=== PATIENT | female | born 1960 | race African-American/Black ===

== ENCOUNTER 2019-04-19 07:27 | Emergency (ER) | payer BC ==
--- NOTE | 2019-04-19 07:46 | PDOC ---
History of Present Illness <Ho Mckeon - Last Filed: 04/19/19 08:16> - History of Present Illness Initial Comments: 04/19/19 07:56 58 year old woman with a history of paroxysmal a fib, palpitations, HLD and diverticulitis who presents with 12 minutes of chest pain/pressure and shortness of breath that occurred after leaving the gym at 7:50am. The patient reports she was not doing more activity than normal at the gym and was on the treadmill, lifting weights and doing lunges. The patient called 911 for the chest pain but as she spoke to them she noted that the pain resolved, so she decided to drive herself to the ED. She had a recent travel to [place] on 4 days ago with return flight yesterday afternoon. Flight duration 3 hours. The patient a stress echo in January that was negative, and had a Holter monitor last week for her palpitations without acute findings. At bedside she denies any current symptoms. ROS GENERAL/CONSTITUTIONAL: No fever or chills. No weakness. CARDIOVASCULAR: + chest pain or shortness of breath RESPIRATORY: No cough, wheezing, or hemoptysis. GASTROINTESTINAL: No nausea, vomiting, diarrhea or constipation. GENITOURINARY: No dysuria, frequency, or change in urination. MUSCULOSKELETAL: No joint or muscle swelling or pain. No neck or back pain. SKIN: No rash NEUROLOGIC: No headache, vertigo, loss of consciousness, or change in strength/ sensation. PE GENERAL: Awake, alert, and fully oriented, in no acute distress HEAD: No signs of trauma, normocephalic, atraumatic EYES: EOMI, sclera anicteric, conjunctiva clear ENT: oropharynx clear without exudates. Moist mucosa NECK: Normal ROM, supple LUNGS: No distress, speaks full sentences, slightly decreased breath sounds on R lung soliman HEART: Regular rate and rhythm, normal S1 and S2, no murmurs, rubs or gallops, peripheral pulses normal and equal bilaterally. ABDOMEN: Soft, nontender No guarding, no rebound. No masses EXTREMITIES : Normal inspection, Normal range of motion, no edema. No clubbing or cyanosis. NEUROLOGICAL: Cranial nerves II through XII grossly intact. 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 and will follow up within 1 week strict return precautions given Nancy Urrutia PGY2 Emergency Medicine <Nancy Urrutia - Last Filed: 04/20/19 09:20> - General Chief Complaint: Chest Pain Stated Complaint: CHEST PAIN,SHORTNESS OF BREATH Time Seen by Provider: 04/19/19 07:46 Past History <Ho Mckeon - Last Filed: 04/19/19 08:16> - Past Medical History Asthma: Yes Cardiac Disorders: Yes (A.FIB) COPD: No GI Disorders: Yes (H/O DIVERTICULITIS) HTN: Yes - Surgical History Abdominal Surgery: Yes - Psycho Social/Smoking Cessation Hx Smoking Status: No Smoking History: Never smoked Number of Cigarettes Smoked Daily: 0 Drug/Substance Use Hx: No Substance Use Type: None <Nancy Urrutia - Last Filed: 04/20/19 09:20> - Past Medical History Allergies/Adverse Reactions: Allergies Allergy/AdvReac Type Severity Reaction Status Date / Time latex Allergy Intermediate Verified 04/19/19 07:30 Home Medications: Ambulatory Orders Metoprolol Succinate [Toprol XL -] 25 mg PO DAILY 08/25/12 *Physical Exam - Vital Signs Last Vital Signs Temp Pulse Resp BP Pulse Ox 98 F 103 H 18 122/83 96 04/19/19 07:30 04/19/19 07:30 04/19/19 07:30 04/19/19 07:30 04/19/19 07:30 <Ho Mckeon - Last Filed: 04/19/19 08:16> - Vital Signs Last Vital Signs Temp Pulse Resp BP Pulse Ox 98 F 103 H 18 122/83 96 04/19/19 07:30 04/19/19 07:30 04/19/19 07:30 04/19/19 07:30 04/19/19 07:30 <Nancy Urrutia - Last Filed: 04/20/19 09:20> Heart Score/ECG Review - History History: Moderately suspicious - Electrocardiogram EKG: Non specific repolarization disturbance - Age Age: 45-65 - Risk Factors Risk Factors Heart Score: Yes Hx Hypercholesterolemia Based on the list above the patient has:: 1-2 risk factors - Troponin Troponin: </= normal limit - Score Heart Score - Total: 4 <Ho Mckeon - Last Filed: 04/19/19 08:16> ED Treatment Course - LABORATORY CBC & Chemistry Diagram: 04/19/19 08:02 04/19/19 08:01 <Ho Mckeon - Last Filed: 04/19/19 08:16> - LABORATORY CBC & Chemistry Diagram: 04/19/19 08:02 04/19/19 08:01 <Nancy Urrutia - Last Filed: 04/20/19 09:20> Discharge <Ho Mckeon - Last Filed: 04/19/19 08:16> - Discharge Information Problems reviewed: Yes - Admission No <Nancy Urrutia - Last Filed: 04/20/19 09:20> - Discharge Information Clinical Impression/Diagnosis: Chest pain, atypical Condition: Stable Disposition: HOME - Patient Discharge Instructions Patient Printed Discharge Instructions: DI for Atypical Chest Pain Additional Instructions: You were seen in the ED for chest pain Your labwork and imaging were unremarkable There is no need for admission to the hospital at this time As you have a loan expeditor it is important that you see them in the next week Return to the ED if you have chest pain, shortness of breath, lightheadedness, nausea, sweating or any other concerning symptoms.
[2019-04-19 07:50] VITALS: TEMP 98; BMI 26.4
--- NOTE | 2019-04-19 08:13 | PDOC ---
Attending Attestation - Resident Resident Name: Nancy Urrutia - ED Attending Attestation I have performed the following: I have examined & evaluated the patient, The case was reviewed & discussed with the resident, I agree w/resident's findings & plan, Exceptions are as noted - HPI HPI: 04/19/19 11:18 58 years old with past medical history significant for paroxysmal A. fib palpitations hyperlipidemia presents with 12 minutes of chest pressure and mild shortness of breath after leaving the gym this morning. She had no pain or discomfort during her walk workout several minutes after stopping to work out while leaving she began to this developed this pressure sensation patient had a recent cardiac work-up with a stress echo test in January that was negative and had a Holter monitor placed last week for palpitations which did not does demonstrate any acute abnormalities Symptoms were moderate persistent constant not exacerbated by walking alleviated by rest ROS: A complete review of 10 out of 10 review of systems is taken and is negative apart from what is previously mentioned below and in the HPI. - Physicial Exam PE: 04/19/19 11:18 Vitals: Triage Vital signs reviewed General Appearance: No acute distress, well nourished well developed, Head: Atraumatic, Neck: Supple; no Nucal rigidity Chest Wall: Nontender Cardiac: Regular rate and rhythym, no murmurs, no rubs, no gallops, Lungs: Clear to auscultation bilateral, good air movement bilaterally, Abdomen: Soft, non distended, normal bowel sounds, non tender to palpation Extremities: Full range of motion to all extremities, no cyanosis, clubbing, or edema Skin: Warm and dry, no rashes or lesions, no rash, no petechiae Psych: Normal mood, normal affect at 11months tracking - Medical Decision Making 04/19/19 15:37 Atypical chest discomfort heart score 3 given that discomfort happened prior to arrival will check 2 troponins Reevaluation patient is symptom-free EKG is nonischemic demonstrates normal sinus rhythm at 84 bpm performed at 7:[address] elevations nonspecific T wave inversion in lead III unchanged from previous EKG Troponin negative x2 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 Heart Score/ECG Review - History History: Moderately suspicious - Electrocardiogram EKG: Normal - Age Age: 45-65 - Risk Factors Risk Factors Heart Score: Yes Hx Hypercholesterolemia Based on the list above the patient has:: 1-2 risk factors - Troponin Troponin: </= normal limit - Score Heart Score - Total: 3
[2019-04-19 08:15] LABS: BASO % 0.5 % (0-2.0); EOS % 2.2 % (0-4.5); HEMATOCRIT 43.5 % (32.4-45.2); HEMOGLOBIN 14.2 GM/dL (10.7-15.3); LYMPH % 36.1 % (8-40); MCH 27.5 pg (25.7-33.7); MCHC 32.7 g/dl (32.0-36.0); MEAN CELL VOLUME 84.2 fl (80-96); MEAN PLT VOLUME 8.3 fl (7.5-11.1); MONO % 8.8 % (3.8-10.2); NEUT % 52.4 % (42.8-82.8); PLATELET COUNT 236 K/MM3 (134-434); RBC 5.17 M/mm3 (3.60-5.2); RDW 14.1 % (11.6-15.6); WHITE BLOOD COUNT 3.7 K/mm3 (4.0-10.0)
[2019-04-19 08:29] LABS: PH,URINE 6.5 (5.0-8.0); URINE APPEARANCE CLEAR; URINE BILIRUBIN NEGATIVE (NEGATIVE); URINE COLOR YELLOW; URINE GLUCOSE (UA) NEGATIVE (NEGATIVE); URINE KETONE NEGATIVE (NEGATIVE); URINE LEUK ESTERASE NEGATIVE (NEGATIVE); URINE NITRITE NEGATIVE (NEGATIVE); URINE PROTEIN NEGATIVE (NEGATIVE); URINE UROBILINOGEN 0.2 mg/dL (0.2-1.0)
[2019-04-19 08:38] LABS: INR 0.88 (0.83-1.09); PROTHROMBIN TIME (PATIENT) 10.4 SEC (9.7-13.0)
[2019-04-19 08:41] LABS: ACTIVATED PTT 32.3 SECONDS (25.2-36.5)
[2019-04-19 08:56] LABS: ALBUMIN 3.7 g/dl (3.4-5.0); ALK PHOS 85 U/L (45-117); ANION GAP 8 MMOL/L (8-16); BILIRUBIN,TOTAL 0.5 mg/dL (0.2-1); BLOOD UREA NITROGEN 13.4 mg/dL (7-18); CALCIUM 10.1 mg/dL (8.5-10.1); CHLORIDE 107 mmol/L (98-107); CO2 28 mmol/L (21-32); GLUCOSE,RANDOM 95 mg/dL (74-106); POTASSIUM 4.2 mmol/L (3.5-5.1); SGOT/AST 24 U/L (15-37); SGPT/ALT 23 U/L (13-61); SODIUM 142 mmol/L (136-145); TOT PROT 6.9 g/dl (6.4-8.2)
[2019-04-19 10:14] VITALS: BP 108/76; PULSE 61
--- NOTE | 2019-04-19 13:24 | EKG ---
Test Reason : Blood Pressure : / mmHG Vent. Rate : 084 BPM Atrial Rate : 084 BPM P-R Int : 184 ms QRS Dur : 074 ms QT Int : 348 ms P-R-T Axes : 052 007 -18 degrees QTc Int : 411 ms NORMAL SINUS RHYTHM NONSPECIFIC T WAVE ABNORMALITY ABNORMAL ECG WHEN COMPARED WITH ECG OF 25-AUG-2012 14:00, NO SIGNIFICANT CHANGE WAS FOUND Confirmed by JOHN JAMES MD ([id number]) on 04/19/2019 1:24:23 PM Referred By: Confirmed By:JOHN JAMES MD
== END 2019-04-19 12:04 | disposition home or self-care (01) ==
LOC: JER 07:27
DX: R07.89 Other chest pain (principal); I48.0 Paroxysmal atrial fibrillation; R00.2 Palpitations; I10 Essential (primary) hypertension; E78.5 Hyperlipidemia, unspecified; Z87.19 Personal history of other diseases of the digestive system
CPT/HCPCS: 36415; 71045-TC-FY; 80053; 81003; 83880; 84484; 85025; 85379; 85610; 85730; 87086; 93005; 93010; 99285-25

== ENCOUNTER 2019-12-29 11:30 | Inpatient (IN) | payer BC, OTHER ==
--- NOTE | 2019-12-29 11:40 | PDOC ---
Rapid Medical Evaluation Chief Complaint: Chest Pain Time Seen by Provider: 12/29/19 11:34 Medical Evaluation: Allergies Allergy/AdvReac Type Severity Reaction Status Date / Time latex Allergy Intermediate Verified 04/19/19 07:30 12/29/19 11:34 I have performed a brief in-person evaluation of this patient. The patient presents with a chief complaint of:h/o HTN, A-fib, palpitations on Toprol and asthma presenting with complains of rapid heart rate since an hour which she took 100mg on her daily 25mg metroprolol. report has SOB which has improved. Denies sweats, N/V, dizziness Pertinent physical exam findings:. heart RRR. lungs CTAB in nad I have ordered the following: CBC, cardiac profile, EKG, CXR The patient will proceed to the ED for further evaluation. Discharge Disposition - Diagnosis Chest pain, atypical - Discharge Dispostion Condition at time of disposition: Stable - Referrals - Patient Instructions - Post Discharge Activity
[2019-12-29 12:41] LABS: BASO % 0.4 % (0-2.0); EOS % 2.9 % (0-4.5); HEMATOCRIT 43.5 % (32.4-45.2); HEMOGLOBIN 14.1 GM/dL (10.7-15.3); LYMPH % 34.3 % (8-40); MCH 27.3 pg (25.7-33.7); MCHC 32.5 g/dl (32.0-36.0); MEAN CELL VOLUME 83.9 fl (80-96); MEAN PLT VOLUME 8.3 fl (7.5-11.1); MONO % 9.2 % (3.8-10.2); NEUT % 53.2 % (42.8-82.8); PLATELET COUNT 323 K/MM3 (134-434); RBC 5.19 M/mm3 (3.60-5.2); RDW 13.7 % (11.6-15.6); WHITE BLOOD COUNT 5.3 K/mm3 (4.0-10.0)
[2019-12-29 12:46] LABS: INR 0.89 (0.83-1.09); PROTHROMBIN TIME (PATIENT) 10.5 SEC (9.7-13.0)
--- NOTE | 2019-12-29 12:58 | PDOC ---
History of Present Illness - General Chief Complaint: Chest Pain Stated Complaint: CHEST PAIN Time Seen by Provider: 12/29/19 11:34 - History of Present Illness Initial Comments: 12/29/19 12:34 Pt is a 59yo F with PMH of paroxysmal A. fib, palpitations, HTN, hyperlipidemia, diverticulitis, osteoarthritis, and asthma, who presents to ED with chest pain. She states that pain began 2 hours ago, and has resolved upon arrival at ED. Describes as pressure at the center of chest, non radiating, non-exertional. Pt took 100mg metoprolol, usual dose is 25mg, and states that this relieved pressure. Denies any other relieving or aggravating factors. Reports SOB, palpitations, and headache. Denies fevers, chills, diaphoretic, n/v, cough, wheezing, abdominal pain. 12/29/19 17:56 Past History - Medical History Allergies/Adverse Reactions: Allergies Allergy/AdvReac Type Severity Reaction Status Date / Time latex Allergy Intermediate Verified 12/29/19 11:39 Home Medications: Ambulatory Orders Metoprolol Succinate [Toprol XL -] 25 mg PO DAILY 08/25/12 Asthma: Yes Cardiac Disorders: Yes (A.FIB) COPD: No GI Disorders: Yes (H/O DIVERTICULITIS) HTN: Yes (denies) Hypercholesterolemia: Yes Other medical history: osteoarthritis - Surgical History Abdominal Surgery: Yes - Psycho-Social/Smoking History Smoking Status: No Smoking History: Never smoked Number of Cigarettes Smoked Daily: 0 - Substance Abuse Hx (Audit-C & DAST Scrn) How often the patient has a drink containing alcohol: Never Score: In Men: 4 or > Positive; In Women: 3 or > Positive: 0 Screen Result (Pos requires Nsg. Audit-10AR): Negative Review of Systems - Review of Systems Constitutional: No: Chills, Diaphoresis, Fever Respiratory: Yes: Shortness of Breath. No: Cough, Wheezing Cardiac (ROS): Yes: Chest Pain, Palpitations. No: Edema ABD/GI: No: Nausea, Vomiting Neurological: Yes: Headache Psychiatric: Yes: Anxiety *Physical Exam - Vital Signs Last Vital Signs Temp Pulse Resp BP Pulse Ox 98.2 F 63 18 143/88 98 12/29/19 11:36 12/29/19 11:36 12/29/19 11:36 12/29/19 11:36 12/29/19 11:36 - Physical Exam General Appearance: Yes: Other (Well developed, well nourished, awake, alert, in no acute distress) Respiratory/Chest: positive: Lungs Clear, Normal Breath Sounds. negative: Crackles, Wheezing Cardiovascular: positive: Regular Rhythm, Bradycardia, Other (pulses 3+). negative: Edema Gastrointestinal/Abdominal: positive: Soft. negative: Tender Extremity: negative: Swelling Heart Score/ECG Review - History History: Moderately suspicious - Electrocardiogram EKG: Normal - Age Age: 45-65 - Risk Factors Risk Factors Heart Score: Yes Hx Hypercholesterolemia, Yes Hx Hypertension Based on the list above the patient has:: 1-2 risk factors - Troponin Troponin: </= normal limit - Score Heart Score - Total: 3 ED Treatment Course - LABORATORY CBC & Chemistry Diagram: 12/29/19 12:00 12/29/19 12:00 Medical Decision Making - Medical Decision Making Ms. Hoffmann is a 59yo with PMH paroxysmal A. fib, hypertension, hyperlipidemia, presents with chest pain and palpitations. Vital Signs Temp Pulse Resp BP Pulse Ox 98.2 F 63 18 143/88 98 12/29/19 11:36 12/29/19 11:36 12/29/19 11:36 12/29/19 11:36 12/29/19 11:36 DDx: ACS, pneumothorax, Afib Plan: labs, cxr, ekg, cardiac consult MDM: - HEART score - 3 - Patient well appearing - Asymptomatic at present time and asymptomatic entirety of ED stay - will consult cards to help discuss final disposition EKG: normal CXR - no acute lung disease, no pneumothorax or pleural effusion. Mild bilateral increased lung markings. Cardiac silhouette remains enlarged, as seen on prior xray from 04/19/2019. Troponin negative Re-assessment: Per cards recommendation ([facility]), will collect second troponin - if negative, follow up outpatient. Normal nuclear stress and echo 1 year ago Second troponin positive (0.17). Given elevated second troponin, we are planning to admit for cardiology workup. Pt continues to appear well, denies chest pain. Sign out given to Dr. Bassett. Accepted case and will follow up on further care. Disposition: Admit to telemetry 12/29/19 19:37 12/29/19 19:38 Discharge - Discharge Information Problems reviewed: Yes Clinical Impression/Diagnosis: Chest pain, atypical, Palpitations, NSTEMI (non-ST elevated myocardial infarction) Condition: Stable - Admission Yes - Follow up/Referral - Patient Discharge Instructions - Post Discharge Activity
[2019-12-29 13:07] LABS: ALBUMIN 3.8 g/dl (3.4-5.0); BILIRUBIN,TOTAL 0.3 mg/dL (0.2-1); BLOOD UREA NITROGEN 10.8 mg/dL (7-18); CALCIUM 10.1 mg/dL (8.5-10.1); MAGNESIUM 2.4 mg/dL (1.8-2.4); POTASSIUM 4.3 mmol/L (3.5-5.1); TOT PROT 7.1 g/dl (6.4-8.2)
--- NOTE | 2019-12-29 13:18 | PDOC ---
Documentation entered by Vika Heck SCRIBE, acting as scribe for Natalie Payne MD. Natalie Payne MD: This documentation has been prepared by the scribe, Vika Heck SCRIBE, under my direction and personally reviewed by me in its entirety. I confirm that the documentation accurately reflects all work, treatment, procedures, and medical decision making performed by me. Attending Attestation - Resident Resident Name: BaldwinPrincess - ED Attending Attestation I have performed the following: I have examined & evaluated the patient, The case was reviewed & discussed with the resident, I agree w/resident's findings & plan, Exceptions are as noted - HPI HPI: 12/29/19 12:26 Patient is 59 year old female with a significant past medical history of paroxysmal A. fib palpitations hyperlipidemia, diverticulitis, osteoarthritis, and "seasonal" asthma, who presents to the ED with chest pain since approximately 2 hours ago. Patient stated she was sitting down on the phone when the chest pain suddenly occurred along with a headache and SOB "all at once". Patient said she self medicated at home but that her symptoms did not improve. Patient described the pain as being "like a pressure" and that it does not move from the center of her chest. Patient disclosed that she has experienced palpitations before but that they normally happen after her exerting herself - not sitting down like today. Patient said that her symptoms went away upon ER arrival. Patient denies: fever, chills, nausea, any changes in vision, vomiting, diarrhea, numbness/tingling in extremities, or any other related symptoms. Allergies: Lipitor and latex Skiver Welt End: May[facility] ([facility]) Patient had a previous lipoma removal surgery on her right wrist. - Physicial Exam PE: GENERAL: Awake, alert, and fully oriented, in no acute distress HEAD: No signs of trauma EYES: PERRLA, EOMI, sclera anicteric, conjunctiva clear ENT: Auricles normal inspection, hearing grossly normal, nares patent, oropharynx clear without exudates. Moist mucosa NECK: Normal ROM, supple, no lymphadenopathy, JVD, or masses LUNGS: Breath sounds equal, clear to auscultation bilaterally. No wheezes, and no crackles HEART: Bradycardic with regular rhythm, normal S1 and S2, no murmurs, rubs or gallops ABDOMEN: Soft, nontender, normoactive bowel sounds. No guarding, no rebound. No masses EXTREMITIES: Normal range of motion, no edema. No clubbing or cyanosis. No cords, erythema, or tenderness NEUROLOGICAL: Cranial nerves II through XII grossly intact. Normal speech, normal gait. Motor and sensation intact SKIN: Warm, dry, normal turgor, no rashes or lesions noted. - Medical Decision Making Pt with episode of palpitations associated with chest pressure at 10:45 this morning. She took extra doses of metoprolol for a total of 100mg, after which she started to feel better. She states her symptoms resolved on arrival in the ED, now asymptomatic. The chest pressure is concerning for poss demand ischemia, however, an ischemic event could have led to the palpitations, as well. 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 Discharge - Discharge Information Problems reviewed: Yes Clinical Impression/Diagnosis: Chest pain, atypical, Palpitations Condition: Stable - Follow up/Referral Referrals: Gio Linn [Primary Care Provider] - - Patient Discharge Instructions - Post Discharge Activity
[2019-12-29 13:49] LABS: ANISOCYTOSIS 0; MACROCYTOSIS 0; PLATELET ESTIMATE NORMAL
[2019-12-29] MEDS ORDERED: ASPIRIN 81 MG CHEWABLE TABLETS PO ONE (17:32)
[2019-12-29] MEDS ORDERED: ASPIRIN 81 MG CHEWABLE TABLETS ONE (17:55)
--- NOTE | 2019-12-29 19:46 | PN ---
Teaching Attending Note Name of Resident: Suman Bassett ATTENDING PHYSICIAN STATEMENT I saw and evaluated the patient. I reviewed the resident's note and discussed the case with the resident. I agree with the resident's findings and plan as documented. SUBJECTIVE: Patient is 59 year old woman with a PMH of Paroxysmal Afib, Palpitations, Hyperl ipidemia, Diverticulitis, Osteoarthritis, Lipoma removal from right wrist and "seasonal" Asthma who presents to the ER with chest pain for 2 hours. Patient stated she was sitting down on the phone when the chest pain suddenly occurred along with a headache and SOB "all at once". Patient said she self medicated at home but that her symptoms did not improve. Patient described the pain as being "like a pressure" and that it does not move from the center of her chest. Patient disclosed that she has experienced palpitations before but that they normally happen after exerting herself - not sitting down like today. Patient said that her symptoms went away upon ER arrival. She denies fever, chills, nausea, changes in vision, vomiting, diarrhea, numbness/tingling in extremities or dysuria. Denies alcohol, tobacco or illicit drug use. No sick contacts or recent travels. Family history is unremarkable. OBJECTIVE: Alert Vital Signs Period Temp Pulse Resp BP Sys/Mc Pulse Ox Last 24 Hr 98.2 F 63 18 143/88 98 HEENT: No Jaundice, eye redness or discharge, PERRLA, EOMI. Normocephalic, atraumatic. External ears are normal and hearing is grossly intact. No nasal discharge. Neck: Supple, nontender. No palpable adenopathy or thyromegaly. No JVD Chest: Good effort. Clear to auscultation and percussion. Heart: Regular. No S3, rub or murmur Abdomen: Not distended, soft, nontender and no HSM. No rebound or guarding. Normal bowel sounds. Ext: Peripheral pulses intact. No leg edema. Skin: Warm and dry. No petechiae, rash or ecchymosis. Neuro: Alert. Oriented x3. CN 2-12 grossly intact. Sensation grossly intact in all four extremities and DTR are symmetric. Psych: Appropriate mood and affect. Good insight. Home Medications Medication Instructions Recorded Metoprolol Succinate [Toprol XL -] 25 mg PO DAILY 08/25/12 Abnormal Lab Results 12/29/19 12/29/19 12:00 16:18 AST 12 L Troponin I 0.17 H Current Medications Generic Name Dose Route Start Last Admin Trade Name Carleen PRN Reason Stop Dose Admin Enoxaparin Sodium 80 mg 12/29/19 21:00 12/29/19 21:41 Lovenox - SQ 80 mg BID NICHELLE Administration ASSESSMENT AND PLAN: 1. Chest pain/NSTEMI - Pain free in the ER. Has risk factors for ACS. Second troponin is 0.17. ER staff consulted Cardiology and patient being started on Lovenox 80 mg sq bid. Patient is "allergic" to Lipitor. EKG shows sinus bradycardia at 50/minute and prolonged QTc 499 with nonspecific T wave changes with no ST changes. CXR shows cardiomegaly with no evidence of acute lung disease. Got ASA 324 mg in the ER. Will admit to telemetry, trend troponin, get ECHO, fasting lipids, TSH and consult Cardiology. Her [id number] score is 1 - despite multiple entries in her medical records, patient insists she was never diagnosed with hypertension. Viral testing for COVID-19 ordered and patient placed on airborne, droplet and contact isolation. 2. DVT prophylaxis - On full dose Lovenox 80 mg SQ bid for NSTEMI. 3. Advance directives - Full code
[2019-12-29] MEDS ORDERED: ENOXAPARIN NA (PORCINE) 80 MG/0.8 ML DISP.SYRIN SQ ONE (21:31)
[2019-12-29] MEDS: ENOXAPARIN NA (PORCINE) 80 MG/0.8 ML DISP.SYRIN SQ SCH (21:41)
--- NOTE | 2019-12-30 00:47 | HP ---
CHIEF COMPLAINT: PCP: Dr. Gio Penny HISTORY OF PRESENT ILLNESS: Pt is a 59 yoF with a PMHx of paroxysmal atrial fibrillation on metropolol 25 mg PO daily and no anticoagulation, palpitations, HTN, HLD, diverticulitis, osteoarthritis and asthma. Pt states that around 11am this morning, she suddenly had an onset of substernal chest pain that came on unprovoked. Pt describes the chest pain as if "someone was sitting on the center of her chest". She also had associated SOB and palpitations at the onset of the chest pain. She states she was on the phone at this time, not exerting herself and not having a stressful conversation at the onset of this chest pain. Pt states the pain was 8/10 at the onset. She took a total of 100mg of her metroprolol which she states brought her pain down to 2/10 by the time she arrived in the ED, and her SOB and palpitations had subsided. Pt denies any radiation of the chest pain to her L side, or elsewhere. Pt denies any recent travel, sick contacts. Pt admits to CP, SOB, palpitations at the onset of her episode, however it has currently subsided. Pt denies diaphoresis, fever, chills, nausea, vomiting, abdominal pain, cough, wheezing, chest tightness, vision or edema. Pt had been to [facility] in Mar 2019 for an episode of chest pain that started after she finished exercising at the gym. Pt presented to the ED for her symptoms, and was evaluated. She was found to have normal EKG, negative trops x 2, negative D- dimer and unremarkable CXR and was discharged from the ED. Pt had an echocardiogram and nuclear stress done about a year ago with no significant findings. Pt states Lipitor causes her to have muscle aches. Her PCP offered an alternative medication, however she did not want to try any other medications for her HLD. ER course was notable for: (1) ASA 324mg in ED (2) EKG sinus bradycardia (HR 50) with nonspecific T wave changes, prolonged QTc at 499ms but no ST changes Recent Travel: Denies PAST MEDICAL HISTORY: As stated above PAST SURGICAL HISTORY: JESSICA - 1988 R wrist lipoma removal - December 05/2020 Social History: Smoking: Never smoker Alcohol: Rarely drinks on holidays Drugs: Denies Allergies latex Allergy (Intermediate, Verified 12/29/19 11:39) Lipitor (muscle aches) HOME MEDICATIONS: Home Medications Medication Instructions Recorded Metoprolol Succinate [Toprol XL -] 25 mg PO DAILY 08/25/12 REVIEW OF SYSTEMS CONSTITUTIONAL: Denies diaphoresis, weakness, malaise, loss of appetite, weight change, fever, chills HEENT: Denies vision changes, rhinorrhea, difficulty swallowing, diplopia. CARDIOVASCULAR: Denies current CP, palpitations, syncope, lightheadedness, peripheral edema. RESPIRATORY: Denies current SOB, cough, FINNEY, orthopnea, hemoptysis, wheezing. GASTROINTESTINAL: Denies abdominal pain, abdominal distension, nausea, vomiting, diarrhea, constipation, melena, hematochezia GENITOURINARY: Denies dysuria, frequency, urgency, hesitancy, hematuria, flank pain, genital pain MUSCULOSKELETAL: Denies myalgia, arthralgia, joint swelling, back pain, neck pain SKIN: Denies rash, itching, pallor HEMATOLOGIC/IMMUNOLOGIC: Denies easy bleeding, easy bruising, lymphadenopathy ENDOCRINE: Denies unexplained weight gain, unexplained weight loss NEUROLOGIC: Denies current headache, focal weakness or paresthesias, dizziness, unsteady gait, seizure, mental status changes, bladder or bowel incontinence PSYCHIATRIC: Denies anxiety, depression, suicidal or homicidal ideation, hallucinations. PHYSICAL EXAMINATION Vital Signs - 24 hr 12/29/19 11:36 Temperature 98.2 F Pulse Rate 63 Respiratory 18 Rate Blood Pressure 143/88 O2 Sat by Pulse 98 Oximetry (%) GENERAL: Awake, alert, and fully oriented, in no acute distress. HEAD: Normal with no signs of trauma. EYES: Pupils equal, round and reactive to light, extraocular movements intact, sclera anicteric, conjunctiva clear. No lid lag. EARS, NOSE, THROAT: Ears normal, nares patent, oropharynx clear without exudates. Moist mucous membranes. NECK: Normal range of motion, supple without lymphadenopathy, JVD, or masses. LUNGS: Breath sounds equal, clear to auscultation bilaterally. No wheezes, and no crackles. No accessory muscle use. HEART: Regular rate and rhythm, normal S1 and S2 without murmur, rub or gallop. ABDOMEN: Soft, nontender, not distended, normoactive bowel sounds, no guarding, no rebound, no masses. No hepatomegaly or splenomegaly. MUSCULOSKELETAL: Normal range of motion at all joints. No bony deformities or tenderness. No CVA tenderness. UPPER EXTREMITIES: 2+ pulses, warm, well-perfused. No cyanosis. No clubbing. No peripheral edema. LOWER EXTREMITIES: 2+ pulses, warm, well-perfused. No calf tenderness. No peripheral edema. NEUROLOGICAL: Cranial nerves II-XII intact. Normal speech. Normal gait. PSYCHIATRIC: Cooperative. Good eye contact. Appropriate mood and affect. SKIN: Warm, dry, normal turgor, no rashes or lesions noted, normal capillary refill. Laboratory Results - last 24 hr 12/29/19 12/29/19 12/29/19 12:00 12:00 12:00 WBC 5.3 RBC 5.19 Hgb 14.1 Hct 43.5 MCV 83.9 MCH 27.3 MCHC 32.5 RDW 13.7 Plt Count 323 D MPV 8.3 Absolute Neuts (auto) 2.8 Neutrophils % 53.2 Neutrophils % (Manual) 59.2 Band Neutrophils % 0.0 Lymphocytes % 34.3 Lymphocytes % (Manual) 29.6 Monocytes % 9.2 Monocytes % (Manual) 4 Eosinophils % 2.9 Eosinophils % (Manual) 2.0 Basophils % 0.4 Basophils % (Manual) 0.0 Myelocytes % (Man) 0 Promyelocytes % (Man) 0 Blast Cells % (Manual) 0 Nucleated RBC % 0 Metamyelocytes 0 Hypochromia 0 Platelet Estimate Normal Polychromasia 0 Poikilocytosis 0 Anisocytosis 0 Microcytosis 0 Macrocytosis 0 PT with INR 10.50 INR 0.89 PTT (Actin FS) 35.0 Sodium 140 Potassium 4.3 Chloride 104 Carbon Dioxide 25 Anion Gap 10 BUN 10.8 Creatinine 1.0 Est GFR (CKD-EPI)AfAm 70.91 Est GFR (CKD-EPI)NonAf 61.19 Random Glucose 101 Calcium 10.1 Magnesium 2.4 Total Bilirubin 0.3 AST 12 L ALT 20 Alkaline Phosphatase 93 Creatine Kinase 78 Troponin I 0.02 Total Protein 7.1 Albumin 3.8 12/29/19 12/29/19 16:18 21:41 WBC RBC Hgb Hct MCV MCH MCHC RDW Plt Count MPV Absolute Neuts (auto) Neutrophils % Neutrophils % (Manual) Band Neutrophils % Lymphocytes % Lymphocytes % (Manual) Monocytes % Monocytes % (Manual) Eosinophils % Eosinophils % (Manual) Basophils % Basophils % (Manual) Myelocytes % (Man) Promyelocytes % (Man) Blast Cells % (Manual) Nucleated RBC % Metamyelocytes Hypochromia Platelet Estimate Polychromasia Poikilocytosis Anisocytosis Microcytosis Macrocytosis PT with INR INR PTT (Actin FS) Sodium Potassium Chloride Carbon Dioxide Anion Gap BUN Creatinine Est GFR (CKD-EPI)AfAm Est GFR (CKD-EPI)NonAf Random Glucose Calcium Magnesium Total Bilirubin AST ALT Alkaline Phosphatase Creatine Kinase 72 Troponin I 0.17 H 0.05 Total Protein Albumin ASSESSMENT/PLAN: Pt is a 59 yo F who presented with substernal chest pain that came on unprovoked with associated SOB and palpitations. EKG showed no ST changes, trops were 0.02, 0.17, 0.05. No acute changes on CXR. #Chest pain/NSTEMI - Trops: 0.02, 0.17, 0.05 - CK 78 - Held metroprolol due to bradycardia, HR 50s - 60s - Consulted cardiology (talked to Dr. Lopez who recommended Lovenox 80mg BID SQ and NPO after midnight for possible stress test) - Started on Lovenox 80mg BID SQ - Heart score = 3 - NPO after midnight for possible stress test - Pt admitted to tele, continue to monitor - Follow up morning troponins in AM labs #Hx of atrial fibrillation - Held metoprolol 25mg PO daily due to bradycardia - Monitor patient for improvement in HR - Currently on Lovenox 80mg BID SQ - CHADSVASc = 1 (1 point for female); no medical terminologist anticoagulation required at this time #Hx of HLD - Lipid profile ordered for AM labs - Allergic to Lipitor due to muscle aches - Advise pt to f/u with PCP on alternative medication #Hx of osteoarthritis - steroid injection received in L knee on 12/23/2019 #COVID rule out - will rule out COVID due to pt living in [facility] - COVID PCR ordered, results pending - placed in isolation with airborne precuations pending Prophylaxis: - Lovenox 80 mg BID SQ for therapeutic dose FEN: - Monitor electrolytes in AM labs - NPO after midnight for possible stress test Dispo: Admit to tele for overnight monitoring. Follow up on AM troponin and labs. Hold metropolol until bradycardia resolves. Started on Levonox 80mg BID SQ Family Medical History Family History: Unremarkable Problem List - Problem (1) Chest pain, atypical Code(s): R07.89 - OTHER CHEST PAIN (2) NSTEMI (non-ST elevated myocardial infarction) Code(s): I21.4 - NON-ST ELEVATION (NSTEMI) MYOCARDIAL INFARCTION (3) Palpitations Code(s): R00.2 - PALPITATIONS (4) Diverticulitis Code(s): K57.92 - DVTRCLI OF INTEST, PART UNSP, W/O PERF OR ABSCESS W/O BLEED Visit type - Emergency Visit Emergency Visit: Yes ED Registration Date: 12/29/19 Care time: The patient presented to the Emergency Department on the above date and was hospitalized for further evaluation of their emergent condition. - New Patient This patient is new to me today: Yes Date on this admission: 12/29/19 - Critical Care Critical Care patient: No ATTENDING PHYSICIAN STATEMENT I saw and evaluated the patient. I reviewed the resident's note and discussed the case with the resident. I agree with the resident's findings and plan as documented. SUBJECTIVE: OBJECTIVE: ASSESSMENT AND PLAN:
[2019-12-30 05:31] LABS: EPI CELLS 6 /uL (0-25.1); HYALINE CASTS 0 /uL (0-3.1); PH,URINE 7.5 (5.0-8.0); URINE APPEARANCE CLEAR; URINE BACTERIA 98 /uL (0-1359); URINE BILIRUBIN NEGATIVE (NEGATIVE); URINE COLOR YELLOW; URINE GLUCOSE (UA) NEGATIVE (NEGATIVE); URINE KETONE NEGATIVE (NEGATIVE); URINE LEUK ESTERASE TRACE (NEGATIVE); URINE NITRITE NEGATIVE (NEGATIVE); URINE PROTEIN NEGATIVE (NEGATIVE); URINE RBC 30 /uL (0-23.9); URINE UROBILINOGEN 0.2 mg/dL (0.2-1.0); URINE WBC 6 /uL (0-25.8)
[2019-12-30] MEDS ORDERED: ENOXAPARIN NA (PORCINE) 80 MG/0.8 ML DISP.SYRIN SQ ONE (08:54)
[2019-12-30 08:59] LABS: BASO % 0.5 % (0-2.0); EOS % 3.6 % (0-4.5); HEMATOCRIT 44.1 % (32.4-45.2); HEMOGLOBIN 14.2 GM/dL (10.7-15.3); LYMPH % 38.9 % (8-40); MCH 27.1 pg (25.7-33.7); MCHC 32.3 g/dl (32.0-36.0); MEAN PLT VOLUME 8.3 fl (7.5-11.1); MONO % 8.9 % (3.8-10.2); NEUT % 48.1 % (42.8-82.8); PLATELET COUNT 294 K/MM3 (134-434); RBC 5.25 M/mm3 (3.60-5.2); WHITE BLOOD COUNT 4.2 K/mm3 (4.0-10.0)
[2019-12-30] MEDS: ENOXAPARIN NA (PORCINE) 80 MG/0.8 ML DISP.SYRIN SQ SCH (09:25)
[2019-12-30 09:42] LABS: ALBUMIN 3.4 g/dl (3.4-5.0); BLOOD UREA NITROGEN 9.6 mg/dL (7-18); CREATININE 0.9 mg/dL (0.55-1.3); MAGNESIUM 2.5 mg/dL (1.8-2.4); POTASSIUM 4.2 mmol/L (3.5-5.1); TOT PROT 6.4 g/dl (6.4-8.2)
[2019-12-30 09:47] LABS: BILIRUBIN,TOTAL 0.4 mg/dL (0.2-1); PHOSPHOROUS 3.4 mg/dL (2.5-4.9)
--- NOTE | 2019-12-30 10:18 | EKG ---
Test Reason : Blood Pressure : / mmHG Vent. Rate : 051 BPM Atrial Rate : 051 BPM P-R Int : 184 ms QRS Dur : 072 ms QT Int : 428 ms P-R-T Axes : 052 009 -16 degrees QTc Int : 394 ms SINUS BRADYCARDIA POSSIBLE LEFT ATRIAL ENLARGEMENT NONSPECIFIC T WAVE ABNORMALITY ABNORMAL ECG WHEN COMPARED WITH ECG OF 19-APR-2019 07:27, VENT. RATE HAS DECREASED BY 33 BPM Confirmed by Andreas Alvarez ([id number]) on 12/30/2019 10:18:08 AM Referred By: Confirmed By:Andreas Alvarez
[2019-12-30 10:57] LABS: ANISOCYTOSIS 0; MACROCYTOSIS 0; PLATELET ESTIMATE NORMAL
[2019-12-30] MEDS ORDERED: REGADENOSON 0.4 MG/5 ML PRE-FILLED SYRINGE IVPUSH ONE ×2 (12:06→12:15)
--- NOTE | 2019-12-30 12:06 | ECHO ---
Name: DAMARIS GALLAGHER Exam:Adult Echocardiogram Study Date: 12/30/2019 11:14 AM Age: 59 yrs Reason For Study: Chest pain MMode/2D Measurements & Calculations IVSd: 1.0 cm Ao root diam: 2.4 cm LVIDd: 3.9 cm LA dimension: 3.1 cm LVIDs: 2.6 cm LVPWd: 1.2 cm LVPWs: 1.4 cm EDV(Teich): 64.9 ml ESV(Teich): 24.7 ml LVOT diam: 1.9 cm RV S Bro: 8.2 cm/sec Doppler Measurements & Calculations MV E max bro: 74.0 cm/sec Ao V2 max: 120.1 cm/sec MV A max bro: 61.7 cm/sec Ao max P.8 mmHg MV E/A: 1.2 KEIKO(V,D): 2.3 cm2 MV dec time: 0.14 sec LV V1 max P.4 mmHg TR max bro: 199.6 cm/sec LV V1 max: 91.8 cm/sec TR max P.3 mmHg PA V2 max: 81.8 cm/sec Med Peak E' Bro: 8.4 cm/sec PA max P.7 mmHg Med E/e': 8.8 Lat Peak E' Bro: 12.1 cm/sec Lat E/e': 6.1 Procedure Study Quality: Fair. Left Ventricle The left ventricle is normal in size. There is mild concentric left ventricular hypertrophy. The left ventricular ejection fraction is normal. Ejection Fraction = 55-60%. Left Ventricular Filling pattern is normal for age. Right Ventricle The right ventricle is normal in size and function. Atria Normal left and right atrial size and function. Mitral Valve The mitral valve leaflets appear normal. There is no evidence of stenosis, fluttering, or prolapse. T here is no mitral regurgitation noted. Tricuspid Valve The tricuspid valve is normal. There is mild tricuspid regurgitation. Right ventricular systolic pres sure is normal. Aortic Valve The aortic valve is normal in structure and function. Pulmonic Valve The pulmonic valve is not well seen, but is grossly normal. Trace to mild pulmonic valvular regurgita tion. Great Vessels The aortic root is normal size. Abnormal waveform in abdominal aorta suggestive of proximal obstructi on. Pericardium/Pleura There is no pericardial effusion. Interpretation Summary LV: normal size,mild LVH normal systolic and diastolic function EF 55-60% RV: normal No significant valvular dysfunction Abdominal Aorta: bnormal waveform either techinical or proximal obstructive lesion.Suggests a dedicat ed abdominal US. Andreas Alvarez 12/30/2019 12:06 PM
--- NOTE | 2019-12-30 12:09 | EKG ---
Test Reason : Blood Pressure : / mmHG Vent. Rate : 058 BPM Atrial Rate : 058 BPM P-R Int : 166 ms QRS Dur : 074 ms QT Int : 404 ms P-R-T Axes : 062 009 -08 degrees QTc Int : 396 ms SINUS BRADYCARDIA POSSIBLE LEFT ATRIAL ENLARGEMENT NONSPECIFIC T WAVE ABNORMALITY ABNORMAL ECG WHEN COMPARED WITH ECG OF 19-APR-2019 07:27, NO SIGNIFICANT CHANGE WAS FOUND Confirmed by Andreas Alvarez ([id number]) on 12/30/2019 12:08:47 PM Referred By: Confirmed By:Andreas Alvarez
[2019-12-30 16:30] VITALS: BMI 26.6
--- NOTE | 2019-12-30 18:49 | PN ---
Physical Exam: SUBJECTIVE: Patient seen and examined at bedside this morning. No acute events overnight. Patient reports no symptoms since arrival to the ED. She denies coughing, headache, dizziness, chest pain, palpitations, nausea, vomiting or diarrhea.Her heart rate was in the 50's and 60's. She reports that that is her baseline OBJECTIVE: Vital Signs Temperature 98.3 F 12/30/19 18:25 Pulse Rate 69 12/30/19 18:25 Respiratory Rate 20 12/30/19 18:25 Blood Pressure 107/72 12/30/19 18:25 O2 Sat by Pulse Oximetry (%) 99 12/30/19 18:15 GENERAL: The patient is awake, alert, and fully oriented, in no acute distress. HEAD: Normal with no signs of trauma. EYES: PERRLA, EO OH, sclera anicteric, conjunctiva clear. ENT: moist mucous membranes. NECK: supple. LUNGS: Breath sounds equal, clear to auscultation bilaterally HEART: Regular rate and rhythm, S1, S2 ABDOMEN: Soft, nontender, nondistended, normoactive bowel sounds EXTREMITIES: 2+ pulses, warm, well-perfused, no edema. NEUROLOGICAL: Cranial nerves II through XII grossly intact. Normal speech PSYCH: Normal mood, normal affect. SKIN: Warm, dry, normal turgor Laboratory Results - last 24 hr 12/29/19 12/29/19 12/30/19 16:18 21:41 04:10 WBC RBC Hgb Hct MCV MCH MCHC RDW Plt Count MPV Absolute Neuts (auto) Neutrophils % Neutrophils % (Manual) Band Neutrophils % Lymphocytes % Lymphocytes % (Manual) Monocytes % Monocytes % (Manual) Eosinophils % Eosinophils % (Manual) Basophils % Basophils % (Manual) Myelocytes % (Man) Promyelocytes % (Man) Blast Cells % (Manual) Nucleated RBC % Metamyelocytes Hypochromia Platelet Estimate Polychromasia Poikilocytosis Anisocytosis Microcytosis Macrocytosis Sodium Potassium Chloride Carbon Dioxide Anion Gap BUN Creatinine Est GFR (CKD-EPI)AfAm Est GFR (CKD-EPI)NonAf Random Glucose Calcium Phosphorus Magnesium Total Bilirubin AST ALT Alkaline Phosphatase Creatine Kinase 72 Troponin I 0.17 H 0.05 Total Protein Albumin Triglycerides Cholesterol Total LDL Cholesterol HDL Cholesterol Urine Color Yellow Urine Appearance Clear Urine pH 7.5 Ur Specific [place] 1.009 L Urine Protein Negative Urine Glucose (UA) Negative Urine Ketones Negative Urine Blood Negative Urine Nitrite Negative Urine Bilirubin Negative Urine Urobilinogen 0.2 Ur Leukocyte Esterase Trace Urine WBC (Auto) 6 Urine RBC (Auto) 30 Urine Casts (Auto) 0 U Epithel Cells (Auto) 6 Urine Bacteria (Auto) 98 12/30/19 12/30/19 12/30/19 07:55 07:55 07:55 WBC 4.2 RBC 5.25 H Hgb 14.2 Hct 44.1 MCV 84.0 MCH 27.1 MCHC 32.3 RDW 14.0 Plt Count 294 MPV 8.3 Absolute Neuts (auto) 2.0 Neutrophils % 48.1 Neutrophils % (Manual) 47.5 Band Neutrophils % 0.0 Lymphocytes % 38.9 Lymphocytes % (Manual) 34.3 Monocytes % 8.9 Monocytes % (Manual) 5 Eosinophils % 3.6 Eosinophils % (Manual) 8.1 H D Basophils % 0.5 Basophils % (Manual) 0.0 Myelocytes % (Man) 3 H D Promyelocytes % (Man) 0 Blast Cells % (Manual) 0 Nucleated RBC % 0 Metamyelocytes 1 D Hypochromia 0 Platelet Estimate Normal Polychromasia 0 Poikilocytosis 0 Anisocytosis 0 Microcytosis 0 Macrocytosis 0 Sodium 140 Potassium 4.2 Chloride 105 Carbon Dioxide 31 Anion Gap 4 L BUN 9.6 Creatinine 0.9 Est GFR (CKD-EPI)AfAm 80.55 Est GFR (CKD-EPI)NonAf 69.50 Random Glucose 82 Calcium 10.0 Phosphorus 3.4 Magnesium 2.5 H Total Bilirubin 0.4 AST 8 L ALT 18 Alkaline Phosphatase 84 Creatine Kinase 53 Troponin I < 0.02 Total Protein 6.4 Albumin 3.4 Triglycerides 183 H Cholesterol 285 H Total LDL Cholesterol 170 H HDL Cholesterol 74 H Urine Color Urine Appearance Urine pH Ur Specific [place] Urine Protein Urine Glucose (UA) Urine Ketones Urine Blood Urine Nitrite Urine Bilirubin Urine Urobilinogen Ur Leukocyte Esterase Urine WBC (Auto) Urine RBC (Auto) Urine Casts (Auto) U Epithel Cells (Auto) Urine Bacteria (Auto) Active Medications Generic Name Dose Route Start Last Admin Trade Name Freq PRN Reason Stop Dose Admin Atorvastatin Calcium 80 mg 12/30/19 22:00 Lipitor - PO HS NICHELLE Enoxaparin Sodium 40 mg 12/31/19 10:00 Lovenox - SQ DAILY NICHELLE ASSESSMENT/PLAN: Patient is 59 year old female with a PMH of Paroxysmal Afib, HLD, Diverticulitis, Osteoarthritis, Lipoma removal from right wrist and "seasonal" Asthma. who presents to the ER with substernal chest pressure and SOB that lasted for 2 hours. #Chest pain likely 2/2 NSTEMI -Pain free in the ER. Was initially placed on therapeutic lovenox -troponin peaked at 0.17. -EKG: Normal QTc,sinus minal -CXR showed no significant interval changes from 03/20/19 -Stress test unremarkable: small size apical fixed defect compatible with soft tissue attenuation. Normal LV contraction -Normal aorta/renal US -Normal diastolic/systolic fxn on echo -Lipid profile shows uncontrolled hypercholesterolemia (cholesterol 285) -will order TSH -Started atorvastatin 80 mg HS -Continue Toprol XL 25mg -Cardiology following, recs appreciated #Paroxysmal Atrial Fibrillation -On home Toprol Xl 25mg bid -has had episodes of bradycardia while in the hospital -will resume Toprol 25mg daily for now, and adjust as needed -Not on any AC #HLD -Started Lipitor 80mg Hs #FEN -Not on any standing fluids -Monitoring electrolytes -Low sodium diet #DVT prophylaxis -Lovenox 40 mg #Disposition -Advance directives - Full code Visit type - Emergency Visit Emergency Visit: Yes ED Registration Date: 12/29/19 Care time: The patient presented to the Emergency Department on the above date and was hospitalized for further evaluation of their emergent condition. - New Patient This patient is new to me today: Yes Date on this admission: 12/30/19 - Critical Care Critical Care patient: No ATTENDING PHYSICIAN STATEMENT I saw and evaluated the patient. I reviewed the resident's note and discussed the case with the resident. I agree with the resident's findings and plan as documented. SUBJECTIVE: OBJECTIVE: ASSESSMENT AND PLAN:
[2019-12-30] MEDS ORDERED: DOCUSATE SODIUM 100 MG CAPSULE (FP) PO ONE (21:34)
[2019-12-30] MEDS ORDERED: metoPROLOL SUCCINATE 25 MG TAB.SR.24H (FP) PO SCH (22:00)
[2019-12-30] MEDS ORDERED: ATORVASTATIN CA 80 MG TABLET (FP) PO SCH (22:00)
[2019-12-31 06:57] LABS: BASO % 0.3 % (0-2.0); EOS % 2.4 % (0-4.5); HEMATOCRIT 43.7 % (32.4-45.2); LYMPH % 29.4 % (8-40); MCH 26.7 pg (25.7-33.7); MEAN CELL VOLUME 83.5 fl (80-96); MEAN PLT VOLUME 8.4 fl (7.5-11.1); NEUT % 57.9 % (42.8-82.8); PLATELET COUNT 278 K/MM3 (134-434); RBC 5.23 M/mm3 (3.60-5.2); RDW 13.8 % (11.6-15.6); WHITE BLOOD COUNT 5.8 K/mm3 (4.0-10.0)
[2019-12-31 07:06] LABS: ALBUMIN 3.4 g/dl (3.4-5.0); BILIRUBIN,TOTAL 0.5 mg/dL (0.2-1); BLOOD UREA NITROGEN 9.9 mg/dL (7-18); CALCIUM 9.6 mg/dL (8.5-10.1); CREATININE 0.9 mg/dL (0.55-1.3); MAGNESIUM 2.3 mg/dL (1.8-2.4); TOT PROT 6.4 g/dl (6.4-8.2)
--- NOTE | 2019-12-31 08:40 | PN ---
Teaching Attending Note Name of Resident: Audrey Maier ATTENDING PHYSICIAN STATEMENT I saw and evaluated the patient. I reviewed the resident's note and discussed the case with the resident. I agree with the resident's findings and plan as documented. SUBJECTIVE: Remained asymptomatic OBJECTIVE: Vital Signs Temperature 98.2 F 12/31/19 06:00 Pulse Rate 62 12/31/19 06:00 Respiratory Rate 16 12/31/19 06:00 Blood Pressure 122/63 12/31/19 06:00 O2 Sat by Pulse Oximetry (%) 99 12/30/19 18:15 General: Middle-aged female, comfortable, not in distress HEENT mucous membranes moist, no anemia, no jaundice, PERRLA, no nystagmus Neck: No JVD, supple, no bruit, thyroid palpably normal, normal carotid pulsations. Chest: Nontender, clear to auscultation bilaterally. CVS: S1-S2 regular no murmur/gallop/rub Abdomen: Nondistended, soft, bowel sounds present. Extremities: No edema., No Calf tenderness, pulses present [employer]: AO X3 , no gross motor sensory deficit CBC, BMP 12/31/19 06:05 12/31/19 06:05 12/30/2019 Echocardiogram mild LVH with normal LV function, EF 55%-60%. There was a comment concerning an abnormal abdominal waveform pattern requesting a dedicated abdominal ultrasound. 12/30/2019 Lexiscan - Small apical fixed defect compatible with soft tissue attenuation. EF 71% Trops 0.02, 0.17, 0.05, <0.02 Active Medications Atorvastatin Calcium (Lipitor -) 80 mg PO [facility] Last Admin: 12/30/19 21:42 Dose: 80 mg Documented by: Enoxaparin Sodium (Lovenox -) 40 mg SQ DAILY PENDING S[facility] TO [facility] Metoprolol Succinate (Toprol Xl -) 25 mg PO DAILY [facility]ENDING [facility] TO [facility] ASSESSMENT AND PLAN: 59-year-old female history of paroxysmal atrial fibrillation, hypercholesterolemia presents with retrosternal chest pain with palpitation, troponin I peaked 0.17, nuclear stress test fixed small apical, most likely, remained chest pain-free evaluated by cardiology. Active issues: Active issues: 1. Chest pain: Most likely demand ischemia in the setting of uncontrolled heart rate atypical nuclear stress test negative evaluated by cardiology continue aspirin and statin patient is on metoprolol XL 25 mg. 2 2. Paroxysmal atrial fibrillation: Patient has history of paroxysmal atrial fibrillation rate control not on anticoagulation [id number] ONLY 1 will OFFER aspirin 81 mg follow-up with cardiology. 3. Hypercholesteremia: LDL 170, previously had rhabdomyolysis with elevated CK, will switch to low intensity and follow-up with PMD if any complaint of body ache or myalgias, follow-up CK after few weeks Patient can be discharged home follow-up with PMD
[2019-12-31 09:14] VITALS: BP 120/72; PULSE 75; TEMP 98.1
[2019-12-31] MEDS ORDERED: DOCUSATE SODIUM 100 MG CAPSULE (FP) PO ONE (09:34)
[2019-12-31] MEDS ORDERED: POLYETHYLENE GLYCOL 3350 119 GM BTL PO ONE (09:34)
[2019-12-31] MEDS ORDERED: metoPROLOL SUCCINATE 25 MG TAB.SR.24H (FP) PO SCH (10:00)
[2019-12-31] MEDS ORDERED: ENOXAPARIN NA (PORCINE) 40 MG/0.4 ML DISP.SYRIN SQ SCH (10:00)
--- NOTE | 2019-12-31 11:02 | CON.CARD ---
Consult Consult Specialty:: Cardiology Reason for Consultation:: Chest pain - History of Present Illness Chief Complaint: Chest pain History of Present Illness: This is a 59 year old female with a PMH of PAFIB, palpitations, HTN, HLD, and asthma. She presented with chest pain. The pain was described as a mid sternal pressure occurring about 2 hours prior to coming to the ED. The pain was non exertional and non radiating. 12/29/2019 EKG sinus bradycardia at 58 BPM with normal intervals, normal access and NSSTTW changes. 12/30/2019 Echocardiogram mild LVH with normal LV function, EF 55%-60%. There was a comment concerning an abnormal abdominal waveform pattern requesting a dedicated abdominal ultrasound. 12/30/2019 Lexiscan - small apical fixed defect compatible with soft tissue attenuation. EF 71% - Smoking History Smoking history: Never smoked Have you smoked in the past 12 months: No Aproximately how many cigarettes per day: 0 Home Medications - Allergies Allergies/Adverse Reactions: Allergies Allergy/AdvReac Type Severity Reaction Status Date / Time latex Allergy Intermediate Verified 12/29/19 11:39 - Home Medications Home Medications: Ambulatory Orders Metoprolol Succinate [Toprol XL -] 25 mg PO DAILY 08/25/12 Albuterol Sulfate Inhaler - 1 inh IH MONTHLY PRN 12/30/19 Fluticasone/Salmeterol [Advair 250-50 Diskus] 1 each IH MONTHLY 12/30/19 Aspirin [Adult Aspirin Regimen] 81 mg PO DAILY #30 tablet. 12/31/19 Simvastatin 40 mg PO HS #30 tablet 12/31/19 Vital Signs: Vital Signs Temperature 98.1 F 12/31/19 09:13 Pulse Rate 75 12/31/19 09:13 Respiratory Rate 18 12/31/19 09:13 Blood Pressure 120/72 12/31/19 09:13 O2 Sat by Pulse Oximetry (%) 99 12/31/19 09:00 Constitutional: Yes: No Distress Eyes: Yes: WNL HENT: Yes: WNL Neck: Yes: WNL Respiratory: Yes: CTA Bilaterally Gastrointestinal: Yes: Soft Cardiovascular: Yes: Regular Rate and Rhythm Heart Sounds: Yes: S1, S2 Murmur: No: Systolic Murmur Edema: No Neurological: Yes: Alert, Oriented - Other Data Labs, Other Data: CBC, BMP 12/31/19 06:05 12/31/19 06:05 INR, PTT INR 0.89 (0.83-1.09) 12/29/19 12:00 Assessment/Plan 59 year old female with a PMH of PAFIB, palpitations, HTN, HLD, and asthma. She presented with chest pain. The pain was described as a mid sternal pressure occurring about 2 hours prior to coming to the ED. The pain was non exertional and non radiating. 12/29/2019 EKG sinus bradycardia at 58 BPM with normal intervals, normal access and NSSTTW changes. 12/30/2019 Echocardiogram mild LVH with normal LV function, EF 55%-60%. There was a comment concerning an abnormal abdominal waveform pattern requesting a dedicated abdominal ultrasound. 12/30/2019 Lexiscan - Small apical fixed defect compatible with soft tissue attenuation. EF 71% Trops 0.02, 0.17, 0.05, <0.02 Chest pain Given the Lexiscan findings, no need for invasive testing Would not uptitrated BB given bradycardia and asthma history Agree with high intensity statin therapy Abdominal aortic ultrasound obtained and is unremarkable
--- NOTE | 2019-12-31 12:09 | DS ---
Physical Exam: SUBJECTIVE: Patient seen and examined at bedside this morning. No acute events overnight. Patient reports feeling well and has no complaints. OBJECTIVE: Vital Signs Temperature 98.1 F 12/31/19 09:13 Pulse Rate 75 12/31/19 09:13 Respiratory Rate 18 12/31/19 09:13 Blood Pressure 120/72 12/31/19 09:13 O2 Sat by Pulse Oximetry (%) 99 12/31/19 09:00 PHYSICAL EXAM GENERAL: The patient is awake, alert, and fully oriented, in no acute distress. HEAD: Normal with no signs of trauma. EYES: PERRLA, EO MD, sclera anicteric, conjunctiva clear. ENT: moist mucous membranes. NECK: supple. LUNGS: Breath sounds equal, clear to auscultation bilaterally HEART: Regular rate and rhythm, S1, S2 ABDOMEN: Soft, nontender, nondistended, normoactive bowel sounds EXTREMITIES: 2+ pulses, warm, well-perfused, no edema. NEUROLOGICAL: Cranial nerves II through XII grossly intact. Normal speech PSYCH: Normal mood, normal affect. SKIN: Warm, dry, normal turgor LABS Laboratory Results - last 24 hr 12/31/19 12/31/19 06:05 06:05 WBC 5.8 RBC 5.23 H Hgb 14.0 Hct 43.7 MCV 83.5 MCH 26.7 MCHC 32.0 RDW 13.8 Plt Count 278 MPV 8.4 Absolute Neuts (auto) 3.4 Neutrophils % 57.9 D Lymphocytes % 29.4 D Monocytes % 10.0 Eosinophils % 2.4 Basophils % 0.3 Nucleated RBC % 0 Sodium 140 Potassium 4.0 Chloride 108 H Carbon Dioxide 27 Anion Gap 5 L BUN 9.9 Creatinine 0.9 Est GFR (CKD-EPI)AfAm 80.55 Est GFR (CKD-EPI)NonAf 69.50 Random Glucose 88 Calcium 9.6 Magnesium 2.3 Total Bilirubin 0.5 AST 10 L ALT 16 Alkaline Phosphatase 85 Total Protein 6.4 Albumin 3.4 TSH 0.85 HOSPITAL COURSE: Date of Admission:12/29/19 Date of Discharge: 12/31/19 Patient is 59 year old female with a PMH of Paroxysmal Afib, HLD, Diverticulitis, Osteoarthritis, Lipoma removal from right wrist and "seasonal" Asthma. who presents to the ER with substernal chest pressure and SOB that lasted for 2 hours. #Chest pain likely 2/2 NSTEMI -Pain free in the ER. Was initially placed on therapeutic lovenox -troponin peaked at 0.17. -EKG: Normal QTc,sinus minal -Stress test unremarkable: small size apical fixed defect compatible with soft tissue attenuation. Normal LV contraction -Normal aorta/renal US -Echo unremarkable -Lipid profile shows uncontrolled hypercholesterolemia (cholesterol 285) -Started atorvastatin 80 mg HS -Continue Toprol XL 25mg -Cardiology following, recs appreciated #Paroxysmal Atrial Fibrillation -has had episodes of bradycardia while in the hospital -will resume Toprol 25mg daily for now, and adjust as needed -CHADSVASc 1, AC not indicated Minutes to complete discharge: 38 Discharge Summary Problems reviewed: Yes Reason For Visit: CHEST PAIN Current Active Problems Chest pain, atypical (Acute) NSTEMI (non-ST elevated myocardial infarction) (Acute) Palpitations (Acute) Condition: Improved - Instructions Diet, Activity, Other Instructions: Your visit You were admitted to the hospital because you had chest pain. You had a stress test done which was normal. You were also noted to have elevated cholesterol levels. You were started on Lipitor, and did not have any muscle pain. We will start you at a lower dose. This medication may also cause dizziness so take it at night. Please call your primary care doctor if you develop any muscle pain. You are now stable for discharge home. Medications Please take the following medications as prescribed: 1. Metroprolol Succinate 25mg once a day. 2. Simvastatin 40mg once daily at bedtime. 3. Aspirin 81mg daily. Follow up Please follow up with your primary care doctor in 1 week. Please follow up with your hatchery attendant (Dr. Davis) within 1-2 weeks. Additional info Please call 911 or go to the ED if with any worsening fevers, chills, headache, dizziness, chest pain, shortness of breath, belly pain or any new concerns noted. Referrals: Billy Dvais MD [Staff Physician] - Gio Linn [Primary Care Provider] - Disposition: HOME - Home Medications Comprehensive Discharge Medication List: Ambulatory Orders Metoprolol Succinate [Toprol XL -] 25 mg PO DAILY 08/25/12 Albuterol Sulfate Inhaler - 1 inh IH MONTHLY PRN 12/30/19 Fluticasone/Salmeterol [Advair 250-50 Diskus] 1 each IH MONTHLY 12/30/19 Aspirin [Adult Aspirin Regimen] 81 mg PO DAILY #30 tablet. 12/31/19 Simvastatin 40 mg PO HS #30 tablet 12/31/19 This patient is new to me today: No Emergency Visit: Yes ED Registration Date: 12/29/19 Care time: The patient presented to the Emergency Department on the above date and was hospitalized for further evaluation of their emergent condition. Critical Care patient: No - Discharge Referral Referred to [facility] No ATTENDING PHYSICIAN STATEMENT I saw and evaluated the patient. I reviewed the resident's note and discussed the case with the resident. I agree with the resident's findings and plan as documented. SUBJECTIVE: OBJECTIVE: ASSESSMENT AND PLAN:
== END 2019-12-31 15:19 | disposition home or self-care (01) | DRG 282 ==
LOC: JER 11:30 → JERBED 17:33 → OBSVTOIN 20:53 → J4W 12-30 18:09
PROVIDERS: ADMIT Internal Medicine; ATTEND Internal Medicine
DX: I21.4 Non-ST elevation (NSTEMI) myocardial infarction (principal); E78.00 Pure hypercholesterolemia, unspecified; R00.1 Bradycardia, unspecified; I48.0 Paroxysmal atrial fibrillation; R00.2 Palpitations; J45.998 Other asthma; Z20.828 Contact with and (suspected) exposure to other viral communicable diseases; Z91.040 Latex allergy status; Z88.8 Allergy status to other drugs, medicaments and biological substances; Z86.39 Personal history of other endocrine, nutritional and metabolic disease; Z79.01 Long term (current) use of anticoagulants
CPT/HCPCS: 36415; 71046-TC-FY; 76775-TC; 78452-TC; 80053; 80061; 81003; 82550; 83721; 83735; 84100; 84443; 84484; 85025; 85610; 85730; 93005; 93010; 93017; 93306-TC; 99285-25; A9502; G0378; J2785; U0003

== ENCOUNTER 2021-07-17 09:38 | Emergency (ER) | payer BC, OTHER ==
[2021-07-17 10:17] VITALS: TEMP 97.9; BMI 24.3
[2021-07-17 10:42] LABS: BASO % 0.6 % (0-2.0); EOS % 1.4 % (0-4.5); HEMOGLOBIN 13.8 GM/dL (10.7-15.3); MCH 28.1 pg (25.7-33.7); MCHC 33.6 g/dl (32.0-36.0); MEAN CELL VOLUME 83.8 fl (80-96); MEAN PLT VOLUME 7.7 fl (7.5-11.1); MONO % 11.4 % (3.8-10.2); NEUT % 69.6 % (42.8-82.8); PLATELET COUNT 274 10^3/uL (134-434); RDW 13.3 % (11.6-15.6); WHITE BLOOD COUNT 3.9 K/mm3 (4.0-10.0)
[2021-07-17 11:03] LABS: EPI CELLS 3 /uL (0-25.1); HYALINE CASTS 0 /uL (0-3.1); URINE APPEARANCE CLEAR; URINE BACTERIA 16 /uL (0-1359); URINE BILIRUBIN NEGATIVE (NEGATIVE); URINE COLOR YELLOW; URINE GLUCOSE (UA) NEGATIVE (NEGATIVE); URINE KETONE NEGATIVE (NEGATIVE); URINE LEUK ESTERASE NEGATIVE (NEGATIVE); URINE NITRITE NEGATIVE (NEGATIVE); URINE PROTEIN NEGATIVE (NEGATIVE); URINE RBC 17 /uL (0-23.9); URINE UROBILINOGEN 0.2 mg/dL (0.2-1.0); URINE WBC 1 /uL (0-25.8)
[2021-07-17 11:13] LABS: CALCIUM 9.8 mg/dL (8.5-10.1)
[2021-07-17 11:14] LABS: ALBUMIN 3.2 g/dl (3.4-5.0); BLOOD UREA NITROGEN 7.6 mg/dL (7-18)
[2021-07-17 11:17] LABS: CREATININE 0.9 mg/dL (0.55-1.3)
[2021-07-17 11:19] LABS: BILIRUBIN,TOTAL 0.2 mg/dL (0.2-1); TOT PROT 6.1 g/dl (6.4-8.2)
[2021-07-17 15:12] VITALS: BP 141/78; PULSE 80
== END 2021-07-17 15:12 | disposition home or self-care (01) ==
LOC: JER 09:38
DX: R00.2 Palpitations (principal)
CPT/HCPCS: 36415; 71045-TC-FY; 80053; 81003; 82550; 84484; 85025; 87086; 93005; 93010; 99285-25; C9803; U0003; U0005